=== PATIENT | female | born 1955 | race Caucasian/White ===

== ENCOUNTER 2016-12-02 08:55 | Emergency (ER) | payer OTHER ==
[~2016-12-02] VITALS: Ht 162.6 cm; Wt 91.0 kg
[2016-12-02 10:03] VITALS: BP 141/101
== END 2016-12-02 10:06 | disposition home or self-care (01) ==
LOC: ER 08:56
DX: I86.8 Varicose veins of other specified sites (principal); E11.9 Type 2 diabetes mellitus without complications; E78.00 Pure hypercholesterolemia, unspecified; I10 Essential (primary) hypertension
CPT/HCPCS: 99283